=== PATIENT | female | born 1955 | race Caucasian/White ===

== ENCOUNTER 2016-11-26 09:26 | Day surgery (SDC) | payer OTHER ==
[2016-11-26] VITALS (12 sets, daily range): BP systolic 129–153; BP diastolic 55–78; PULSE 60–100; RESP 14–22; Ht 127 cm; Wt 85.0 kg
[~2016-11-26] VITALS: Ht 127 cm; Wt 85.0 kg
[2016-11-26] MEDS ORDERED: METF500T4 PO (10:17)
[2016-11-26] MEDS ORDERED: GLIP-95 PO (10:17)
[2016-11-26] MEDS ORDERED: LOSA25TA5 PO (10:17)
[2016-11-26 10:19] LABS: ADD SCAN DIFF NO
[2016-11-26 10:23] LABS: BASOPHILS % 0.4 % (0.0-2.0); EOSINOPHILS # 0.1 10^3/ul (0.0-0.5); EOSINOPHILS % 0.9 % (0.0-7.0); HEMATOCRIT 39.8 % (37.0-47.0); HEMOGLOBIN 13.7 g/dl (12.0-16.0); LYMPHOCYTES # 1.4 10^3/ul (0.8-2.9); LYMPHOCYTES % 20.4 % (15.0-51.0); MEAN CORPUSCULAR HGB CONC 34.4 g/dl (32.0-37.0); MEAN PLATELET VOLUME 9.4 fl (7.4-10.4); MONOCYTE # 0.5 10^3/ul (0.3-0.9); MONOCYTES % 7.3 % (0.0-11.0); NEUTROPHIL # 4.9 10^3/ul (1.6-7.5); NEUTROPHILS % 70.9 % (39.0-77.0); PLATELET COUNT 261 10^3/UL (140-415); RED BLOOD COUNT 4.28 10^6/ul (4.20-5.40); RED CELL DISTRIBUTION WIDTH 12.3 % (11.5-14.5)
[2016-11-26 10:35] LABS: INR 0.98
[2016-11-26 10:36] LABS: PARTIAL THROMBOPLASTIN TIME 28.7 Sec (25.0-35.0)
[2016-11-26 10:38] LABS: ALBUMIN 4.9 g/dl (3.3-4.9); ALBUMIN/GLOBULIN RATIO 1.68; BILIRUBIN,INDIRECT 0.6 mg/dl (0-1.1); BILIRUBIN,TOTAL 0.6 mg/dl (0.2-1.3); CALCIUM 9.7 mg/dl (8.4-10.2); CREATININE 0.61 mg/dl (0.44-1.00); POTASSIUM 4.3 mmol/L (3.5-5.1); TOTAL PROTEIN 7.8 g/dl (6.1-8.1)
--- NOTE | 2016-11-26 11:24 | RADRPT ---
PROCEDURE: XR Chest AP portable CLINICAL INDICATION: Right breast CA TECHNIQUE: An AP portable radiograph of the chest was submitted. COMPARISON: None. FINDINGS: Support Hardware: None Cardiovascular: The cardiovascular silhouette appears unremarkable except for mild atherosclerotic c hange involving the aorta. Lung Lazo: The lung lazo appear clear with no nodule, alveolar infiltrate, or interstitial promi nence evident. Pleural Spaces: No pneumothorax or pleural effusion is identified. Osseous Structures: Mild degenerative changes are seen diffusely through the thoracic spine. Soft Tissues: The soft tissues appear generous. IMPRESSION: 1. Mildly atherosclerotic aorta 2. Degenerative spine changes 3. Otherwise, unremarkable portable chest. Physician Daphney Date Time Electronically viewed and signed by Physician Daphney on 11/26/2016 11:24 /
[2016-11-26] MEDS ORDERED: CEFAZOLIN 2 GM/50 ML (PMX) 50 ML IVPB ONE (12:00)
[2016-11-26] MEDS ORDERED: SOD CHLORIDE 0.9% 1,000 ML IV ONE (12:00)
[2016-11-26] MEDS ORDERED: HYDROCODONE/APAP (7.5/325) TAB PO PRN (13:00)
[2016-11-26] MEDS ORDERED: ISOSULFAN BLUE 1% 5 ML INJ SC ONE (13:07)
[2016-11-26] MEDS ORDERED: FENTAnyl 50 MCG/ML VIAL ONE (13:22)
[2016-11-26] MEDS ORDERED: MIDAZOLAM 1 MG/ML 2 ML INJ ONE (13:22)
[2016-11-26] MEDS ORDERED: LIDOCAINE 2% (SDV) 5 ML INJ ONE (13:22)
[2016-11-26] MEDS ORDERED: PROPOFOL 20 ML ONE (13:22)
[2016-11-26] MEDS ORDERED: SUCCINYLCHOLINE CHLORIDE 100 MG/5 ML SYG IV ONE (13:32)
[2016-11-26] MEDS ORDERED: ONDANSETRON 4 MG INJ ONE (13:36)
[2016-11-26] MEDS ORDERED: CEFAZOLIN 1 GM INJ ONE (13:36)
[2016-11-26] MEDS ORDERED: FAMOTIDINE 20 MG INJ ONE (13:36)
--- NOTE | 2016-11-26 15:16 | OPR ---
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 POSTOPERATIVE DIAGNOSIS: Invasive cancer right breast. OPERATION PERFORMED: Needle-directed right partial mastectomy and sentinel lymph node biopsy. ANESTHESIA: General. ANESTHESIOLOGIST: KYAW MARIN DO. SURGEON: Harrison Catherine MD INDUSTRIAL WASTE INSPECTOR: Nilesh Dacosta MD INDICATIONS FOR PROCEDURE: The patient is a 61-year-old female who underwent screening mammography and was found to have at least a 5 cm span of very suspicious appearing microcalcifications. Core b iopsy revealed ductal carcinoma in situ with suspicion for invasion. The patient was counseled as t o the need for right partial mastectomy using a bracketing technique and sentinel lymph node biopsy. She consented and was scheduled for surgery. DESCRIPTION OF PROCEDURE: On the morning of surgery, the patient presented to [facility] where she underwent localization of the lesion using a 2 needle bracketing techn ique and performed by attending [facility] radiologist, Dr. Edwige Dominguez. Subsequently, she was brought to the operating theater, placed under general endotracheal tube anesthesia. [facility] breast and axillary regions were prepped and draped in usual sterile fashion. Approximately 4 m L of 1% Lymphazurin blue dye were then injected in the region of the known suspicious microcalcifica tions. The breast was gently massaged for approximately 12 minutes. At this point, a 4 cm incision was made in the right axillary hairline and subcutaneous tissue was then dissected with cautery maxim n through the clavipectoral fascia. A dye-stained lymphatic was identified exiting the breast and e ntering the axilla. It was traced for several centimeters until a somewhat enlarged and very obviou s sentinel lymph node was identified. It was resected using LigaSure device. It was examined by at tending pathologist, Dr. Robi Leal with frozen section. He was found to have approximate 3 mm macrometastases. At this point, Dr. Catherine inspected the axilla. There was no obvious residual enl arged nodes noted and due to the fact that we did not have final pathology on the excision, Dr. Saud varghese decided to defer further node resection until permanent pathology was available. Therefore, the w ound was irrigated and the skin was reapproximated with 4-0 Vicryl suture in standard fashion. At t his point, attention was directed to performing the partial mastectomy. Two bracketing needles were in the upper outer quadrant of the right breast. A curvilinear incision was made in between them. Subcutaneous tissue was dissected with cautery. Skin edges were elevated and wide circumferential dissection of the tissue associated with the space between the [address] Specimen wa s elevated, transected, oriented and sent for radiographic confirmation of capture. Capture was con firmed. The specimen was then sent for permanent pathologic analysis. The wound was irrigated. Mi nimal bleeding was controlled with cautery. The skin was then reapproximated with a deep dermal lay er of 4-0 Vicryl sutures in interrupted fashion, followed by final skin approximation with 4-0 Vicry l suture, but in subcuticular fashion. Dermabond was then applied to both wounds. The patient tole rated the procedure well. The estimated blood loss was 20 mL. There were no complications and the patient was transported in stable condition to the recovery room where circumferential compression d ressing was applied. Dictated By: HARRISON CASTRO/BRITTANY Conf#: [id number] DID#: [id number]
[2016-11-26] MEDS ORDERED: DIPHENHYDRAMINE 50 MG INJ IV PRN (15:30)
[2016-11-26] MEDS ORDERED: MEPERIDINE 25 MG INJ IV PRN (15:30)
[2016-11-26] MEDS ORDERED: PROCHLORPERAZINE 10 MG INJ IV PRN (15:30)
[2016-11-26] MEDS ORDERED: HYDROmorphONE (0.2 MG/ML) 10ML SYG IV PRN ×2 (15:30)
--- NOTE | 2016-11-27 10:08 | RADRPT ---
Vent Rate: 54 bpm RR Interval: 0 msec MN Interval: 214 msec QRS Duration: 72 msec QT Interval: 446 msec QTC Interval: 422 msec P-R-T Jefferson: 47 - 2 - 46 degrees Sinus bradycardia with 1st degree AV block Otherwise normal ECG Electronically Signed By: Casey Johnston [id number]
== END 2016-11-26 16:49 | disposition home or self-care (01) ==
LOC: SDS 09:26
PROVIDERS: ATTEND Surgery Surgical Oncology
DX: C50.911 Malignant neoplasm of unspecified site of right female breast (principal); C77.3 Secondary and unspecified malignant neoplasm of axilla and upper limb lymph nodes; I10 Essential (primary) hypertension; E11.9 Type 2 diabetes mellitus without complications; E66.01 Morbid (severe) obesity due to excess calories; Z68.43 Body mass index [BMI] 50.0-59.9, adult
CPT/HCPCS: 19301; 38500; 38792; 71010; 80053; 82962; 85025; 85610; 85730; 88307; 88331; 93005; J0690; J2175; J2250; J2405; J3010; Z7512; Z7610; J7999; Q9968

== ENCOUNTER 2017-02-12 10:03 | Observation (INO) | payer OTHER ==
[~2017-02-12] VITALS: Ht 144.8 cm; Wt 85.0 kg
[2017-02-12] VITALS (22 sets, daily range): BP systolic 117–150; BP diastolic 62–81; PULSE 58–86; RESP 8–21; Ht 144.8 cm; Wt 85.0 kg
[~2017-02-12 10:03] MED LIST: CEFAZOLIN 2 GM/50 ML (PMX) 50 ML IVPB SCH; GLIP-95 PO; LOSA25TA5 PO; METF500T4 PO; SOD CHLORIDE 0.9% 1,000 ML IV SCH
--- NOTE | 2017-02-12 12:53 | RADRPT ---
PROCEDURE: XR Chest. CLINICAL INDICATION: MASTECTOMY TECHNIQUE: Single frontal view of the chest was obtained. COMPARISON: Chest x-ray from 11/26/2016 FINDINGS: The heart and mediastinum are within normal limits. The lungs are clear. The aortic arch is calcified. There is no significant pleural effusion or pneumothorax. IMPRESSION: No acute disease. Aortic atherosclerosis. RPTAT: EE Physician Laura Date Time Electronically viewed and signed by Armando Goldstein Physician on 02/12/2017 12:53 /
[2017-02-12 12:56] LABS: BASOPHILS % 0.4 % (0.0-2.0); EOSINOPHILS # 0.1 10^3/ul (0.0-0.5); EOSINOPHILS % 0.8 % (0.0-7.0); HEMATOCRIT 39.6 % (37.0-47.0); HEMOGLOBIN 13.7 g/dl (12.0-16.0); LYMPHOCYTES # 1.7 10^3/ul (0.8-2.9); LYMPHOCYTES % 23.2 % (15.0-51.0); MEAN CORPUSCULAR HEMOGLOBIN 31.8 pg (29.0-33.0); MEAN CORPUSCULAR HGB CONC 34.6 g/dl (32.0-37.0); MEAN CORPUSCULAR VOLUME 91.9 fl (82.0-101.0); MEAN PLATELET VOLUME 9.7 fl (7.4-10.4); MONOCYTE # 0.7 10^3/ul (0.3-0.9); MONOCYTES % 8.7 % (0.0-11.0); NEUTROPHILS % 66.6 % (39.0-77.0); PLATELET COUNT 252 10^3/UL (140-415); RED BLOOD COUNT 4.31 10^6/ul (4.20-5.40); RED CELL DISTRIBUTION WIDTH 12.3 % (11.5-14.5); WHITE BLOOD COUNT 7.5 10^3/ul (4.8-10.8)
[2017-02-12 13:15] LABS: ALBUMIN 4.4 g/dl (3.3-4.9); ALBUMIN/GLOBULIN RATIO 1.29; BILIRUBIN,INDIRECT 0.6 mg/dl (0-1.1); BILIRUBIN,TOTAL 0.6 mg/dl (0.2-1.3); TOTAL PROTEIN 7.8 g/dl (6.1-8.1)
[2017-02-12 13:17] LABS: INR 0.91; PROTIME 12.2 Sec (12.2-14.2)
[2017-02-12 13:18] LABS: CALCIUM 9.7 mg/dl (8.4-10.2); CREATININE 0.62 mg/dl (0.44-1.00); PARTIAL THROMBOPLASTIN TIME 28.7 Sec (25.0-35.0); POTASSIUM 4.2 mmol/L (3.5-5.1)
[2017-02-12] MEDS ORDERED: LIDOCAINE 2% (SDV) 5 ML INJ ONE (15:38)
[2017-02-12] MEDS ORDERED: ONDANSETRON 4 MG INJ ONE (15:38)
[2017-02-12] MEDS ORDERED: METOCLOPRAMIDE 10 MG INJ ONE (15:38)
[2017-02-12] MEDS ORDERED: CEFAZOLIN 1 GM INJ ONE (15:38)
[2017-02-12] MEDS ORDERED: PROPOFOL 20 ML ONE (15:38)
[2017-02-12] MEDS ORDERED: MEPERIDINE 25 MG INJ IV PRN ×2 (16:00)
[2017-02-12] MEDS ORDERED: LABETALOL HCL 20MG INJ IV PRN ×2 (16:00)
[2017-02-12] MEDS ORDERED: HYDROmorphONE (0.2 MG/ML) 10ML SYG IV PRN ×6 (16:00)
[2017-02-12] MEDS ORDERED: EPHEDrine SULFATE 50 MG/5 ML SYG IV PRN ×2 (16:00)
[2017-02-12] MEDS ORDERED: METOCLOPRAMIDE 10 MG INJ IV PRN ×2 (16:00)
[2017-02-12] MEDS ORDERED: hydrALAzine 20 MG INJ IV PRN ×2 (16:00)
[2017-02-12] MEDS ORDERED: DIPHENHYDRAMINE 50 MG INJ IV PRN ×2 (16:00)
[2017-02-12] MEDS ORDERED: OXYCODONE/ACETAMINOPHEN (5/325) TAB PO PRN ×6 (16:00→23:30)
[2017-02-12] MEDS ORDERED: FENTAnyl 50 MCG/ML VIAL IV PRN ×6 (16:00)
[2017-02-12] MEDS ORDERED: MIDAZOLAM 1 MG/ML 2 ML INJ IV PRN ×2 (16:00)
[2017-02-12] MEDS ORDERED: ONDANSETRON 4 MG INJ IV PRN ×3 (16:00→18:00)
[2017-02-12] MEDS ORDERED: MEPERIDINE 100 MG INJ ONE (16:22)
--- NOTE | 2017-02-12 17:36 | SIPON ---
Date/Time of Note Date/Time of Note DATE: 02/12/17 TIME: 17:34 Operative Report Preoperative Diagnosis Invasive cancer right breast Postoperative Diagnosis Same Operation/Procedure Performed Right completion modified radical mastectomy Surgeon: STERLING NELSON MD nursing home assistant: TODD MOHR MD Anesthesia Type: general Estimated Blood Loss: 10 - 50 ml's Transfusion Required: no Specimens Right breast and axillary contents and additional axillary lymph nodes Grafts/Implants: none Complications: no STERLING NELSON MD Feb 12, 2017 17:35
[2017-02-12] MEDS ORDERED: ACETAMINOPHEN 1000MG/100ML IV 100 ML IVPB PRN (18:00)
[2017-02-12] MEDS ORDERED: morphine 2 MG INJ IV PRN (18:00)
--- NOTE | 2017-02-12 19:47 | OPR ---
DATE OF OPERATION: 02/12/2017 PREOPERATIVE DIAGNOSIS: Invasive cancer, right breast. Need for completion mastectomy and axillary dissection with modified radical mastectomy. ANESTHESIA: General. ANESTHESIOLOGIST: Rick Dukes MD SURGEON: Harrison Catherine MD SALES PERFORMANCE MANAGER: Nilesh Dacosta MD INDICATIONS FOR PROCEDURE: Patient is a 61-year-old female, who I had previously treated with breast conservation surgery for invasive cancer, right breast. However, the final pathology revealed inadequate margins, and although she had 1 sentinel node positive, she was then evaluated with MRI, which revealed there was additional residual metastatic disease in the axilla. She was counseled as to the need for completion mastectomy and axillary dissection. She consented and was scheduled for surgery. OPERATIVE PROCEDURE: Patient was brought to the operating room and placed under general endotracheal tube anesthesia. The right breast and axillary region was prepped and draped in the usual sterile fashion. A planned elliptical incision including the previous surgical incisional scar from the partial mastectomy was demarcated with a marking pen and carried out with 15 blade scalpel. Subcutaneous tissue was then dissected with cautery. The skin edges were then elevated with Allis-Gianni clamps and skin flaps were created sequentially with cautery, first to the clavicle superiorly, then medially to the sternal border, inferiorly to the inframammary fold, and laterally until latissimus dorsi muscle had been identified throughout its course. Mastectomy then took place using cautery from medial to lateral. The border of the pectoralis major muscle and the pectoralis minor muscle was identified. Clavipectoral fascia was incised. Blunt dissection along the chest wall allowed for identification of the long thoracic nerve, it was kept out of harm's way. More superiorly, the axillary vein was dissected from medial to lateral. The thoracodorsal neurovascular bundle was identified throughout its course and kept out of harm's way. There were obvious metastatic nodes, which contained metastatic disease. Level 1 and level 2 charity tissue was then harvested using the LigaSure device and then final connective tissue attachments to the latissimus dorsi muscle were transected with cautery. Specimen was elevated, it was removed, then oriented, and sent for permanent pathologic analysis. Dr. Catherine inspected the axilla, there were 2 additional nodes which appeared to be pathologic. Both nodes were resected and sent separately for pathologic analysis. The wound was then irrigated, minimal bleeding was controlled with cautery. Two number 10 flat Preston-Barker drains were then brought through the right mid axillary line. One was cut to size and laid within the axilla. The other was laid over the pectorals major muscle. Both drains were secured in place with 2-0 nylon sutures in the standard fashion and the skin was then reapproximated with skin edyta. The patient tolerated the procedure well. Estimated blood loss 50 cc. There were no complications. The patient was transported in stable condition to the recovery room where circumferential compression dressing was applied. Dictated By: Harrison Catherine MD /nahomi/ida /Document#: [id number]
[2017-02-12] MEDS: D5W-0.45 NACL + KCL 20 MEQ 1,000 ML IV SCH (21:34)
[2017-02-13] MEDS: D5W-0.45 NACL + KCL 20 MEQ 1,000 ML IV SCH ×2 (01:36→04:54)
[2017-02-13 02:44] VITALS: BP 133/67; RESP 16
[2017-02-13 04:00] VITALS: BP 145/74; RESP 20
--- NOTE | 2017-02-13 04:05 | HP ---
DATE OF ADMISSION: 02/12/2017 CHIEF COMPLAINT/HISTORY OF PRESENT ILLNESS: The patient is a 61- year-old female, who was diagnosed with ductal carcinoma in situ of the right breast back in November 2016 and underwent a needle- directed right partial mastectomy and sentinel lymph node biopsy by Dr. Catherine. Patient's final pathology revealed inadequate margins, and she also underwent outpatient MRI, which revealed there was additional residual metastatic disease in the axilla. Patient, therefore, was brought in the hospital today and underwent complete mastectomy and axillary dissection with modified radical mastectomy. Patient had significant postoperative pain., and therefore the patient is admitted for further evaluation and management. The patient denies any nausea, vomiting. No reported fever or chills. No history of headache, dizziness or syncope. No history of hypertension, diabetes or any other cardiac disease. No reported fever or chills. No reported weakness or tingling in any extremity. Except for postoperative pain, the rest of the review of systems is unremarkable. PAST MEDICAL/SURGICAL HISTORY: As stated above. SOCIAL HISTORY: No smoking. No alcohol. ALLERGIES: NONE. MEDICATIONS: . FAMILY HISTORY: Noncontributory. PHYSICAL EXAMINATION: GENERAL: To be conscious, awake, alert. VITAL SIGNS: Temperature 98.4, pulse 84, respiration 18, blood pressure 139/74, O2 saturation 97 percent on room air. HEENT: Tympanic membranes are normal. Oropharynx clear. NECK: Supple. No mass or thyromegaly. CHEST: Fairly clear. CVS: S1, S2 normal. No murmur, gallop or rub. ABDOMEN: Soft, nontender. EXTREMITIES: No leg edema. NEUROLOGIC: Patient is awake, alert, with no gross focal deficit. LABS: This morning, WBC 7.5, hemoglobin 13.7, platelets 252,000. Sodium is 143, potassium 4.2, BUN 13, creatinine 0.6, AST 34, ALT 41, alk phos 123, glucose 115. IMPRESSION: Invasive cancer, right breast, status post modified radical mastectomy and axillary dissection. PLAN: Patient will be admitted on medical floor. Patient will be started on clear liquid diet, which will be advanced as tolerated. Patient will be started on IV Tylenol, Percocet, and IV morphine for pain control. Will use SCD for DVT prophylaxis. If patient continues to do well, she will be discharged home tomorrow. Dictated By: Darion Navarro MD /nahomi/radha /Document#: [id number]
[2017-02-13 07:47] VITALS: BP 140/65; RESP 16
[2017-02-13] MEDS ORDERED: GLUCOSE GEL 15 GRAM TUBE PO PRN ×2 (11:00)
[2017-02-13] MEDS ORDERED: DEXTROSE 50% 50 ML SYRINGE IV PRN ×2 (11:00)
[2017-02-13] MEDS ORDERED: GLUCOSE GEL 15 GRAM TUBE BUCCAL PRN (11:00)
[2017-02-13] MEDS ORDERED: GLUCAGON 1 MG INJ IM PRN (11:00)
[2017-02-13] MEDS: LOSARTAN 25 MG TAB PO SCH (11:27)
[2017-02-13] MEDS: 1/2 NS + KCL 20 MEQ 1,000 ML IV SCH (11:27)
[2017-02-13] MEDS: metFORMIN 500 MG TAB PO SCH ×2 (11:28→20:42)
[2017-02-13] MEDS: INSULIN ASPART [NOVOLOG] 3 ML PEN SC SCH ×3 (12:15→20:41)
[2017-02-13 13:52] VITALS: BP 153/73; RESP 18
--- NOTE | 2017-02-13 15:09 | PN ---
DATE: 02/13/2017 SUBJECTIVE DATA: Postop day number one status post right modified radical mastectomy. No complaints. Patient is doing fine. Has been out of bed and walking around. Tolerating diet. OBJECTIVE DATA: VITAL SIGNS: Stable. Temperature 98.5, heart rate 62. EXTREMITIES: The patient can move the right arm and upper extremity in full range. Dressing is intact and is not too tight. Preston-Barker draining serosanguineous. The nurse gave instructions to the patient on how to take care of the Preston-Barker drain and how to measure it every night and record it, so that when she goes to Dr. Catherine' office she can present the recording on the drainage. ASSESSMENT AND PLAN: Status post right modified radical mastectomy. Patient is doing fine and afebrile. Tolerating diet. Has been out of bed and walking around. Preston-Barker drainage in past 24 hours with 55 cc serosanguineous drainage. The patient was given instructions for care of Preston-Barker drain. The patient will be discharged home today. Medical service will give pain medication. Follow up with Dr. Catherine in the office. Dictated By: Nilesh Dacosta MD /nahomi/james /Document#: [id number]
--- NOTE | 2017-02-13 17:59 | PDOCDIS ---
Discharge Instructions CONDITION Patient Condition: Stable HOME CARE INSTRUCTIONS: Special Diet: 1800 ADA LOW CABRAL Feb 13, 2017 17:59
[2017-02-13] MEDS ORDERED: DOCU-144 PO (18:03)
[2017-02-13] MEDS ORDERED: PANT40TA3 PO (18:03)
[2017-02-13] MEDS ORDERED: Oxycodone/Acetamin (5/325) PO (18:03)
--- NOTE | 2017-02-13 18:09 | PN ---
Date/Time of Note Date/Time of Note DATE: 02/13/17 TIME: 18:04 Assessment/Plan VTE Prophylaxis VTE Prophylaxis Intervention: other Lines/Catheters IV Catheter Type (from Nrsg): Saline Lock Assessment/Plan Assessment/Plan -Invasive cancer, right breast - status post modified radical mastectomy and axillary dissection. - per surgery - pain control - DM - glycemic control - Hypertension- BP 180/90 today, recent one is 160/90 - will give her Hydralazine for SBP > 160 - cont to monitor Dw Dr Reddy Subjective 24 Hr Interval Summary Respiratory: no complaints Cardiovascular: no complaints Gastrointestinal: no complaints Genitourinary: no complaints Musculoskeletal: no complaints Skin: other (SP right mastectomy) Neurologic: no complaints Exam/Review of Systems Vital Signs Vitals Vital Signs Date Time Temp Pulse Resp B/P Pulse Ox O2 Delivery O2 Flow Rate FiO2 02/13/17 13:52 98.5 73 18 153/73 97 02/13/17 04:00 Room Air 02/12/17 17:55 2.0 Intake and Output 02/12/17 02/12/17 02/13/17 15:00 23:00 07:00 Intake Total 650 ml 1760 ml Output Total 40 ml 760 ml Balance 610 ml 1000 ml Exam Constitutional: alert, oriented, well developed Neck: non-tender Respiratory: clear to auscultation, normal air movement Cardiovascular: regular rate and rhythm Gastrointestinal: non-tender, soft Musculoskeletal: nl extremities to inspection Extremities: normal pulses Neurological: nl mental status Results Result Diagram: 02/12/17 1234 02/12/17 1234 Results 24 hrs Laboratory Tests Test 02/13/17 06:42 02/13/17 07:54 02/13/17 12:13 02/13/17 17:20 Bedside Glucose 155 163 139 106 Medications Medications Current Medications Ondansetron HCl (Zofran Inj) 4 mg Q6H PRN IV NAUSEA AND/OR VOMITING Last administered on 02/13/17t 06:48; Admin Dose 4 MG; Start 02/12/17 at 18:00 Morphine Sulfate 2 mg 2 mg Q1H PRN IV PAIN; Start 02/12/17 at 18:00 Acetaminophen (Ofirmev 1000mg/ 100ml Iv) 100 ml @ 400 mls/hr Q6H PRN IVPB PAIN ; Start 02/12/17 at 18:00 Oxycodone/ Acetaminophen (Percocet (5/ 325)) 1 tab Q4H PRN PO MODERATE PAIN 4-6 /10 Last administered on 02/13/17 04:55; Admin Dose 1 TAB; Start 02/12/17 at 23: 30 Oxycodone/ Acetaminophen (Percocet (5/ 325)) 2 tab Q4H PRN PO SEVERE PAIN 7-10/ 10; Start 02/12/17 at 23:30 Losartan Potassium (Cozaar) 25 mg DAILY PO Last administered on 02/13/17 11:27 ; Admin Dose 25 MG; Start 02/13/17 at 11:00 Metformin HCl (Glucophage) 500 mg BID PO Last administered on 02/13/17 11:28; Admin Dose 500 MG; Start 02/13/17 at 11:00 Miscellaneous Information 1 ea NOTE XX ; Start 02/13/17 at 11:00 Glucose (Glutose) 15 gm Q15M PRN PO DECREASED GLUCOSE; Start 02/13/17 at 11:00 Glucose (Glutose) 22.5 gm Q15M PRN PO DECREASED GLUCOSE; Start 02/13/17 at 11:00 Dextrose (D50w Syringe) 25 ml Q15M PRN IV DECREASED GLUCOSE; Start 02/13/17 at 11:00 Dextrose (D50w Syringe) 50 ml Q15M PRN IV DECREASED GLUCOSE; Start 02/13/17 at 11:00 Glucagon (Glucagen) 1 mg Q15M PRN IM DECREASED GLUCOSE; Start 02/13/17 at 11:00 Glucose (Glutose) 15 gm Q15M PRN BUCCAL DECREASED GLUCOSE; Start 02/13/17 at 11: 00 Diagnostic Test (Pha) (Accu-Chek) 1 ea 02 XX ; Start 02/14/17 at 02:00 Diagnostic Test (Pha) 1 ea 1 ea 02 XX ; Start 02/14/17 at 02:00 Potassium Chloride/Sodium Chloride (1/2 NS + KCl 20 Meq) 1,000 ml @ 75 mls/hr [id number] IV Last administered on 02/13/17 11:27; Admin Dose 75 MLS/HR; Start 02/13/17 at 11:30 LOW CABRAL Feb 13, 2017 18:09
--- NOTE | 2017-02-13 19:52 | DS ---
Date/Time of Note Date/Time of Note DATE: 02/13/17 TIME: 19:52 Discharge Summary Admission/Discharge Info Admit Date/Time Feb 12, 2017 at 17:37 Discharge Date/Time Home Meds Active Scripts Pantoprazole* (Protonix*) 40 Mg Tablet.dr, 40 MG PO DAILY, #20 TAB Prov:LOW CABRAL 02/13/17 Docusate Sodium* (Colace*) 100 Mg Capsule, 100 MG PO DAILY, #30 CAP Prov:LOW CABRAL 02/13/17 [Oxycodone/Acetamin (5/325)] 1 TAB TAB No Conflict Check, 2 TAB PO Q6H Y for SEVERE PAIN -03/16, #20 Prov:LOW CABRAL 02/13/17 Reported Medications Glipizide* (Glipizide*) 10 Mg Tablet, 10 MG PO BID, TAB 11/26/16 Metformin* (Glucophage*) 500 Mg Tab, 500 MG PO BID, #60 TAB 11/26/16 Losartan Potassium* (Losartan Potassium*) 25 Mg Tablet, 25 MG PO DAILY, TAB 11/26/16 Primary Care Provider Not On Staff Doctor Pending Labs Laboratory Tests Test 02/13/17 06:42 02/13/17 07:54 02/13/17 12:13 02/13/17 17:20 Bedside Glucose 155mg/dL (70-220) 163mg/dL (70-220) 139mg/dL (70-220) 106mg/dL (70-220) LOW CABRAL Feb 13, 2017 19:52
[2017-02-13 19:57] VITALS: BP 146/67; RESP 18
[2017-02-14] MEDS: 1/2 NS + KCL 20 MEQ 1,000 ML IV SCH ×2 (00:50→04:04)
[2017-02-14 02:00] VITALS: BP 145/68; RESP 18
[2017-02-14] MEDS ORDERED: ACCU-CHEK XX SCH ×2 (02:00)
[2017-02-14 07:50] VITALS: BP 143/68; RESP 18
[2017-02-14] MEDS: metFORMIN 500 MG TAB PO SCH (08:18)
[2017-02-14] MEDS: LOSARTAN 25 MG TAB PO SCH (08:18)
[2017-02-14] MEDS: INSULIN ASPART [NOVOLOG] 3 ML PEN SC SCH ×3 (08:22→17:24)
[2017-02-14 14:59] VITALS: BP 133/67; RESP 18
--- NOTE | 2017-02-14 17:08 | DS ---
Date/Time of Note Date/Time of Note DATE: 02/14/17 TIME: 17:08 Discharge Summary Admission/Discharge Info Admit Date/Time Feb 12, 2017 at 17:37 Discharge Date/Time Home Meds Active Scripts Pantoprazole* (Protonix*) 40 Mg Tablet.dr, 40 MG PO DAILY, #20 TAB Prov:LOW CABRAL 02/13/17 Docusate Sodium* (Colace*) 100 Mg Capsule, 100 MG PO DAILY, #30 CAP Prov:LOW CABRAL 02/13/17 [Oxycodone/Acetamin (5/325)] 1 TAB TAB No Conflict Check, 2 TAB PO Q6H Y for SEVERE PAIN -03/16, #20 Prov:LOW CABRAL 02/13/17 Reported Medications Glipizide* (Glipizide*) 10 Mg Tablet, 10 MG PO BID, TAB 11/26/16 Metformin* (Glucophage*) 500 Mg Tab, 500 MG PO BID, #60 TAB 11/26/16 Losartan Potassium* (Losartan Potassium*) 25 Mg Tablet, 25 MG PO DAILY, TAB 11/26/16 Primary Care Provider Not On Staff Doctor Time spent on discharge: < 30 minutes Pending Labs Laboratory Tests Test 02/13/17 17:20 02/13/17 20:41 02/14/17 08:14 02/14/17 11:58 Bedside Glucose 106mg/dL (70-220) 157mg/dL (70-220) 143mg/dL (70-220) 124mg/dL (70-220) LOW CABRAL Feb 14, 2017 17:08
== END 2017-02-14 18:30 | disposition home or self-care (01) ==
LOC: SDS 10:03 → MS2 17:37
PROVIDERS: ADMIT Surgery Surgical Oncology; ATTEND Surgery Surgical Oncology
DX: C50.911 Malignant neoplasm of unspecified site of right female breast (principal); Z17.0 Estrogen receptor positive status [ER+]; E11.9 Type 2 diabetes mellitus without complications; I10 Essential (primary) hypertension; E66.01 Morbid (severe) obesity due to excess calories; Z68.41 Body mass index [BMI] 40.0-44.9, adult
CPT/HCPCS: 19307; 71010; 80053; 82962; 85025; 85610; 85730; 88307; J0690; J1815; J2175; J2405; J2765; J3480; Z7500; Z7512; Z7610; 96360; 96361; 96372; 96374; G0378